=== PATIENT | male | born 1985 | race Caucasian/White ===

== ENCOUNTER 2022-04-17 20:45 | Emergency (ER) | payer BC, OTHER ==
[~2022-04-17] VITALS: Ht 180.3 cm; Wt 71.2 kg
--- NOTE | 2022-04-17 22:31 | NUR ---
SEEN AND EVALUATED BY DR PÉREZ
[2022-04-17] MEDS ORDERED: ACETAMINOPHEN ES 500 MG TABLET ONE (22:37)
[2022-04-17] MEDS ORDERED: METHOCARBAMOL (500MG) 500 MG TABLET ONE (22:37)
[2022-04-17] MEDS: METHOCARBAMOL (750MG) 750 MG TABLET PO SCH (22:40)
[2022-04-17] MEDS: ACETAMINOPHEN ES 500 MG TABLET PO ONE (22:40)
--- NOTE | 2022-04-17 22:41 | NUR ---
C-COLLAR APPLIED TO PT.
--- NOTE | 2022-04-17 22:41 | NUR ---
PT TAKEN TO CT VIA [facility]
--- NOTE | 2022-04-17 22:54 | NUR ---
PT RETURNED TO ER BED [address]
[2022-04-18] MEDS ORDERED: METH750T3 PO (00:01)
--- NOTE | 2022-04-18 00:08 | NUR ---
Patient discharged to home in stable condition. RX Written and verbal after care instructions given. Patient verbalizes understanding of instruction. pt ambulatory with a steady gait
[2022-04-18 00:09] VITALS: BP 127/95
== END 2022-04-18 00:10 | disposition home or self-care (01) ==
LOC: ER 20:49
DX: M54.2 Cervicalgia (principal); Z79.899 Other long term (current) drug therapy; V89.2XXA Person injured in unspecified motor-vehicle accident, traffic, initial encounter; Y93.89 Activity, other specified; Y92.89 Other specified places as the place of occurrence of the external cause; Y99.8 Other external cause status
CPT/HCPCS: 72125-TC